=== PATIENT | male | born 2000 | race Two or more races ===

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

== ENCOUNTER 2019-07-27 22:09 | Emergency (ER) | payer OTHER ==
[2019-07-27 22:52] VITALS: BP 147/92; PULSE 92; TEMP 97.5; BMI 32.5
--- NOTE | 2019-07-27 22:54 | PDOC ---
History of Present Illness - General Chief Complaint: Eye Problem Stated Complaint: CHEMICAL IN EYE Time Seen by Provider: 07/27/19 22:53 History Source: Patient Exam Limitations: No Limitations - History of Present Illness Initial Comments: Pt is a 18 yo M, with no significant PMH, who is presenting after a chemical exposure to the L eye yesterday afternoon at work. Pt states he was cleaning an industrial oven, and dropped 1-2 drops of the chemical in his eye/eyelids, with no other splashing to the face or head. Pt presented MSDS form, which states the silverware cleaner contains 0-5% by weight of sodium hydroxide. Pt states he has been intermittently "splashing his eye with water" but that he continued to have burning sensation of the upper and lower lids, prompting his visit to the ER. He also endorses drainage of clear tearing from the eye. Pt denies any fevers/ chills, headache, vision changes, syncope, chest pain, palpitations, SOB, nausea /vomiting, abdominal pain, urinary symptoms, diarrhea/constipation, or leg swelling. Allergies: NKDA PCP: None Social: Pt denies any cigarette, alcohol, or drug use. Pt denies any recent travel or sick contacts. Surgical: no relevant history. Family: no relevant history. 07/27/19 23:43 07/28/19 00:33 07/28/19 00:39 Past History - Travel Traveled outside of the country in the last 30 days: No Close contact w/someone who was outside of country & ill: No - Past Medical History Allergies/Adverse Reactions: Allergies Allergy/AdvReac Type Severity Reaction Status Date / Time No Known Allergies Allergy Verified 07/27/19 22:49 Home Medications: Ambulatory Orders NK [No Known Home Medication] 12/09/16 - Immunization History Immunization Up to Date: Yes - Psycho Social/Smoking Cessation Hx Smoking Status: No Smoking History: Never smoked Have you smoked in the past 12 months: No Number of Cigarettes Smoked Daily: 0 Information on smoking cessation initiated: No Hx Alcohol Use: No Drug/Substance Use Hx: No Neuro Specific PMHX - Complaint Specific PMHX Glaucoma: No Migraine: No Review of Systems - Review of Systems Able to Perform ROS?: Yes Is the patient limited Tamazight proficient: No Constitutional: Yes: Weight Stable. No: Chills, Diaphoresis, Fever, Loss of Appetite, Malaise, Weakness HEENTM: Yes: Eye Pain, Tearing, Other (eye redness and tearing). No: Blurred Vision, Recent change in vision, Double Vision, Nose Congestion, Throat Pain, Throat Swelling, Difficulty Swallowing Respiratory: No: Cough, Shortness of Breath Cardiac (ROS): No: Chest Pain, Edema, Irregular Heart Rate, Lightheadedness, Palpitations, Syncope, Chest Tightness ABD/GI: No: Constipated, Diarrhea, Nausea, Poor Appetite, Poor Fluid Intake, Vomiting : No: Burning, Dysuria, Pain, Urgency Musculoskeletal: No: Back Pain, Joint Pain, Joint Swelling Integumentary: No: Bruising, Change in Color, Rash Neurological: No: Headache, Numbness, Unsteady Gait, Dizziness Psychiatric: No: Sleep Pattern Change, Change in Appetite Endocrine: No: Increased Urine, Change in Weight Hematologic/Lymphatic: No: Anemia, Blood Clots, Easy Bleeding, Easy Bruising All Other Systems: Reviewed and Negative *Physical Exam - Vital Signs Last Vital Signs Temp Pulse Resp BP Pulse Ox 97.5 F L 92 H 20 147/92 100 07/27/19 22:49 07/27/19 22:49 07/27/19 22:49 07/27/19 22:49 07/27/19 22:49 - Physical Exam Vitals stable, pt afebrile. Pt in NAD, obese body habitus. Pt alert and oriented x3. environmental compliance officer generally intact, muscular strength and sensation intact. No midline spinal tenderness, step-offs, or crepitus. Head normocephalic, atraumatic. Eyes PERRLA, EOMI. +L eye conjunctival redness with tearing of clear fluid, mild erythema and inflammation of upper and lower inner lids. Visual acuity 20/ 20 in b/l eyes done with bedside Snellen. All visual rae intact b/l. Oropharynx without erythema or exudates, no LAD b/l. No nasal congestion. Hearing intact. Clear heart sounds, S1/S2, no JVD, b/l pedal edema, or heart murmur. Clear lung sounds, no respiratory distress, wheezes, crackles, or accessory muscle use. No abdominal or CVA tenderness to palpation, no rebound, no guarding. Abdomen soft, non-distended, and with normoactive bowel sounds. Skin without jaundice or rash. 07/28/19 00:37 Medical Decision Making - Medical Decision Making Pt with no significant PMH, presenting >24 hours post chemical exposure to the L eye. Visual acuity intact. Eye rinsed in eye shower for 20 minutes. Spoke with poison control center ([place]) who agrees with plan for eye rinsing, and suggests testing eye with pH strips. Provided 650 mg PO tylenol for pain. pH strips showed neutral pH after rinsing. Pt safe for d/c to home with urgent ophthalmology f/u. Strict return precautions provided with pt understanding. 07/28/19 00:40 Discharge - Discharge Information Problems reviewed: Yes Clinical Impression/Diagnosis: Eye irritation Toxic effect of sodium hydroxide Qualifiers: Encounter type: initial encounter Injury intent: accidental or unintentional Qualified Code(s): T54.3X1A - Toxic effect of corrosive alkalis and alkali-like substances, accidental (unintentional), initial encounter Condition: Improved Disposition: HOME - Admission No - Follow up/Referral Referrals: Omkar Samuels MD [Staff Physician] - - Patient Discharge Instructions Patient Printed Discharge Instructions: DI for Chemical Eye Burn Additional Instructions: You were seen in the ER today for a chemical eye exposure, which happened yesterday. Your symptoms improved after heavy rinsing with water. Please follow- up with your primary care doctor and ophthalmology (Dr. Samuels) within 1-2 days to discuss your visit and make sure your symptoms have improved. Please return to the ER if you have any worsening pain, development of fevers or chills, loss of consciousness, inability to tolerate food or fluids, or any other concerns. Please continue to rinse your eye at home with normal water if you continue to have irritation. You can take tylenol or motrin every 4-6 hours as needed for pain. - Post Discharge Activity Work/Back to School Note: Back to Work
[2019-07-27] MEDS ORDERED: ACETAMINOPHEN 325 MG TABLET (FP) PO ONE (23:20)
[2019-07-27] MEDS ORDERED: ACETAMINOPHEN 325 MG TABLET (FP) ONE (23:37)
--- NOTE | 2019-07-27 23:55 | PDOC ---
Attending Attestation - Resident Resident Name: Vandana Mcwilliams - ED Attending Attestation I have performed the following: I have examined & evaluated the patient, The case was reviewed & discussed with the resident, I agree w/resident's findings & plan, Exceptions are as noted - HPI HPI: 07/27/19 23:55 See resident HPI - Physicial Exam PE: 07/27/19 23:55 Agree with exam as documented by resident - Medical Decision Making 07/28/19 05:17 Work exposure to small amount of NaOH in his eyes yesterday Copious flushing, eye exam including pH pH normalized after flushing Visual acuity intact dc with ophtho follow up
== END 2019-07-28 00:12 | disposition home or self-care (01) ==
LOC: JER 22:09
DX: T54.3X1A Toxic effect of corrosive alkalis and alkali-like substances, accidental (unintentional), initial encounter (principal); X58.XXXA Exposure to other specified factors, initial encounter; Y93.89 Activity, other specified; Y92.89 Other specified places as the place of occurrence of the external cause; Y99.0 Civilian activity done for income or pay
CPT/HCPCS: 99281-25